=== PATIENT | male | born 2000 | race Caucasian/White ===

== ENCOUNTER 2019-09-02 11:03 | Emergency (ER) | payer MEDICAID ==
[~2019-09-02] VITALS: Ht 162.6 cm; Wt 70.5 kg
[~2019-09-02 11:03] MED LIST: ADVIL200 MG PO; NO HOME MEDICATIONS; NORCO 325 MG-51 TAB PO; PHENERGAN 25 TA25 MG PO; PREDNISONE20 MG PO; TYLENOL W/COD1 UDTAB PO
[2019-09-02 11:09] VITALS: BP 127/83
[2019-09-02 12:00] VITALS: PULSE 87; TEMP 98.2
== END 2019-09-02 12:13 | disposition home or self-care (01) ==
LOC: COL.ER 11:03
DX: S86.911A Strain of unspecified muscle(s) and tendon(s) at lower leg level, right leg, initial encounter (principal); X58.XXXA Exposure to other specified factors, initial encounter